=== PATIENT | female | born 1975 | race Caucasian/White ===

== ENCOUNTER 2017-05-14 15:36 | Inpatient (IN) | payer OTHER ==
[~2017-05-14] VITALS: Ht 167.6 cm; Wt 77.6 kg
[2017-05-14 15:42] VITALS: BP 141/75
[2017-05-14] MEDS ORDERED: LO LOESTRIN FE1 EACH PO (15:48)
[2017-05-14 16:29] LABS: HEMATOCRIT 40.8 % (37.0-47.0); HEMOGLOBIN 13.7 gm/dL (12.0-15.0); MCH 31.3 pg (26.0-34.0); MCHC 33.5 g/dL (28.0-37.0); MCV 93.4 fL (80.0-100.0); RBC 4.36 mil/uL (4.20-5.00); RDW-CV 14.4 % (10.5-14.5); WBC 14.9 thou/uL (4.0-11.0)
[2017-05-14 16:38] LABS: CREATININE 0.8 mg/dL (0.6-1.3); POTASSIUM 4.1 mmol/L (3.5-5.1)
[2017-05-14 20:20] VITALS: BP 134/65
[2017-05-14 21:00] VITALS: BP 110/68
[2017-05-14 23:26] LABS: CHOLESTEROL 208 mg/dL (<200); HDL CHOLESTEROL 67 mg/dL (>40); LDL CHOLESTEROL 134 mg/dL (<100); TC:HDL 3.1 Ratio (Not establshd); TRIGLYCERIDE 36 mg/dL (<150); VLDL 7 mg/dL (<40)
[2017-05-14 23:34] LABS: SERUM ASSESSMENT Clear
[2017-05-15] VITALS (8 sets, daily range): BP systolic 91–112; BP diastolic 51–62
--- NOTE | 2017-05-15 05:52 | NUR ---
ASSUMED CARE OF PATIENT AT 2100 THE PATIENT ARRIVES TO UNIT SIGNIFICANT OTHER PRESENT AT BEDSIDE THE PATIENT REPORTS DISCOLORATION OF GREAT TOE X 1 MONTH DISCOLORATION OF 3RD DIGIT X 5-7 DAYS WITH INCREASEING PAIN DISCOMFORT PHOTO OBTAINED PER PROTOCOL OF AREAS SKIN IS OTHERWISE W/D/I PATIENT IS ORIENTATED TO UNIT REMAINS SR ON THE MONITOR O2 SAT MAINTAINED ON RA CONTINUES TO BE UP AD KENDALL PATIENT ADVISED IN SAFETY GOALS ORDERS OBTAINED PER PATIENT REQUEST T.O REGARDING PAIN MANAGEMENT PATIENT STATES FENTANYL MORE EFFECTIVE THAN MORPHINE DURING SUPERINTENDENT PLANT PATIENT REQUESTED MEDICATION FREQUENTLY THE ROUTINE REGIMEN CONTINUES TO BE EFFECTIVE FOR SX MANAGEMENT SAFETY INTERVENTIONS CONTINUE BED LOWERED WHEELS LOCKED CALL LIGHT IN REACH SIDE RAILS UP REPORT TO BE GIVEN TO ONCOMING ANNABEL
--- NOTE | 2017-05-15 07:25 | NUR ---
CHANGE OF SHIFT REPORT GIVEN ASSUMED PATIENT CARE PATIENT SEEN AT BEDSIDE PATIENT WITH C/O PAIN, PAIN IVP GIVEN
[2017-05-15 09:36] LABS: APTT 25.7 Seconds (25.0-31.3)
--- NOTE | 2017-05-15 10:20 | EKG ---
[place] [address] ELECTROCARDIOGRAM REPORT Name: KYRA HUBER Room: [address] ADM IN .R.#: [id number] Admission: 05/14/17 Attend Phys: Chapin Davis Discharge: Date of : 77 Report #: [id number] THIS REPORT FOR: //name// [facility] ED Test Date: 2017-05-14 Test Time: 19:03:44 Pat Name: KYRA HUBER Department: Room: [facility] Gender: Cannery Worker: SOURAV Low : 1975 Requested By: Cedric Hoffmann Order Number: [id number] MD: Miguel Longoria Measurements Intervals [place] Rate: 69 P: 37 CT: 128 QRS: 57 QRSD: 94 T: 45 QT: 384 QTc: 412 Interpretive Statements Sinus rhythm Low voltage, precordial leads No previous ECG available for comparison Electronically Signed On 05-15-2017 10:20:13 ELECTRIC ORGAN INSPECTOR AND REPAIRER by Miguel Longoria [email or web address] <ELECTRONICALLY SIGNED> By: Miguel Longoria MD, [facility] 05/15/17 1020 02 02 Miguel Longoria MD, FACC /EPI
--- NOTE | 2017-05-15 19:04 | NUR ---
PATIENT REMAINS A AND O X 4 NSR LUNGS CTA/DIM/RA O2 SAT HIGH 90S GOOD APPETITE GOOD UO UP AD KENDALL IV R AC 20GA IVF NS AT 100CC/HR STARTED HEPARIN AT 12 UNITS/HR NXT PPT AT 0045 ABN LABS WBC 14.9, NA 133 C/O R TOE/L TOE PAIN GIVEN OXYCODONE 5MG PO PRN FENTANYL 50MCG IVP FOR BREAK THROUGH PAIN NO SCDS CALL LIGHT INSTRUCTION GIVEN AND FOLLOWED AND IN PLACE
[2017-05-16] VITALS: BP 93/47
[2017-05-16 00:56] LABS: ABSOLUTE EOSINOPHILS 0.2 thou/uL (0.0-0.7); ABSOLUTE LYMPHOCYTES 2.6 thou/uL (0.8-5.3); ABSOLUTE MONOCYTES 0.5 thou/uL (0.0-1.2); ABSOLUTE NEUTROPHILS 2.8 thou/uL (1.6-8.1); BASOPHILS 0.1 %; HEMATOCRIT 36.8 % (37.0-47.0); HEMOGLOBIN 12.5 gm/dL (12.0-15.0); LYMPHOCYTES 43.1 %; MCH 31.8 pg (26.0-34.0); MCV 93.5 fL (80.0-100.0); MPV 8.2 fl. (7.2-11.1); NUCLEATED RBCS 0 /100WBC; PLATELET COUNT* 226 thou/uL (150-400); POLYS 45.8 %; RBC 3.93 mil/uL (4.20-5.00); RDW-CV 14.2 % (10.5-14.5); WBC 6.1 thou/uL (4.0-11.0)
[2017-05-16 02:05] LABS: GLYCOHEMOGLOBIN (HGB A1C) 5.1 % (4.8-5.6)
[2017-05-16 04:00] VITALS: BP 104/53
--- NOTE | 2017-05-16 06:15 | NUR ---
ASSUMED CARE OF PATIENT AT 1900 HEPARIN INFUSING VIA IV AT 12U/HR POST APTT RESULTS INCREASED X 2U TO 14 RERDRAW PLACED IN TODDLER TEACHER FOR 0900 THIS AM PER PROTOCOL TX CONTINUES WITHOUT S/SX OF ADVERSE EFFECTS NOTED THE PATIENT REMAINS SR-SB HIGH 50'S ON THE TELEPAK MONITOR O2 SAT MAINTAINED ON RA CONTINUES TO BE UP WITH ASSIST OF 1 TO THE ROUTINE REGIMEN CONTINUES TO BE EFFECTIVE FOR SX MANAGEMENT SAFETY INTERVENTIONS CONTINUES BED LOWERED WHEELS LOCKED CALL LIGHT IN REACH SIDE RAILS UP REPORT TO BE GIVEN TO GWENDOLYN JIN
[2017-05-16 08:15] VITALS: BP 103/60
--- NOTE | 2017-05-16 08:45 | NUR ---
ASSUMED PT. CARE AND RECEIVED REPORT AT 0730. PT A/OX4, VSS, MONITOR ON TRACING SB. PT. RATES PAIN IN TOES /10, GIVEN SCHEDULED OXY. FULL ASSESSMENT COMPLETED, REFER TO CHARTING. PT. DENIES SOB, ON RA @ 97%. RIGHT GREAT TOE NOTED TO BE RED/PURPLE, THIRD DIGIT ON LEFT FOOT ALSO NOTED TO BE RED/PURPLE IN COLOR. PT. SIG. OTHER AT BEDSIDE. HEPARIN GTT INFUSING AT 1400UNIT/HR. RIGHT AC IV EDEMATOUS/INFLITRATED UPON ASSESSMENT. NEW IV STARTED TO LEFT FA. CALL LIGHT IN REACH, WILL CONTINUE WITH PLAN OF CARE.
[2017-05-16 12:08] VITALS: BP 111/70
[2017-05-16 15:45] VITALS: BP 107/63
[2017-05-16 19:40] VITALS: BP 101/57
--- NOTE | 2017-05-16 19:49 | NUR ---
PT. STABLE THROUGH OUT SHIFT. REMAINS ON HEPARIN GTT AT 16OO UNITS/HR WITH REDRAW IN MORNING. PT. AWARE OF PLAN FOR NPO AT MIDNIGHT, SURGERY AT 0800. PT. REPORTS PAIN WELL CONTROLLED WITH SCHEDULED MED TODAY. HOURLY ROUNDING COMPLETED THROUGH OUT THE DAY FOR PT. SAFETY.
[2017-05-17] VITALS (16 sets, daily range): BP systolic 95–135; BP diastolic 40–79
--- NOTE | 2017-05-17 04:11 | NUR ---
END SHIFT: PT RESTED WELL. NO COMPLAINTS. NO PAIN. SO AT BEDSIDE. CONSENT FORMS SIGNED FOR SURGERY TODAY. HEPARIN GTT INFUSING AT 1600 UNITS PER HOUR- TOLERATING. NO S/S OF BLEEDING. SAFETY PRECAUTIONS IN PLACE. CALL LIGHT IN REACH. PERFORMED HOURLY ROUNDING. WILL CONT TO MONITOR.
[2017-05-17 04:34] LABS: ABSOLUTE BASOPHILS 0.1 thou/uL (0.0-0.2); ABSOLUTE EOSINOPHILS 0.3 thou/uL (0.0-0.7); ABSOLUTE LYMPHOCYTES 2.7 thou/uL (0.8-5.3); ABSOLUTE MONOCYTES 0.6 thou/uL (0.0-1.2); ABSOLUTE NEUTROPHILS 3.5 thou/uL (1.6-8.1); BASOPHILS 1.3 %; EOSINOPHILS 3.7 %; HEMATOCRIT 37.2 % (37.0-47.0); HEMOGLOBIN 12.4 gm/dL (12.0-15.0); MCH 31.6 pg (26.0-34.0); MCHC 33.4 g/dL (28.0-37.0); MCV 94.6 fL (80.0-100.0); MONOCYTES 7.9 %; MPV 8.4 fl. (7.2-11.1); NUCLEATED RBCS 0 /100WBC; PLATELET COUNT* 222 thou/uL (150-400); POLYS 49.1 %; RBC 3.93 mil/uL (4.20-5.00); RDW-CV 14.1 % (10.5-14.5); WBC 7.2 thou/uL (4.0-11.0)
--- NOTE | 2017-05-17 07:54 | NUR ---
REPORT RECEIVED FROM NIGHT RN. SWAPNA IS AWAITNG TRANSFER TO PACU FOR VASCULAR SURGERY. PAITNET RESTING COMFORTABLY IN BED WITH FAMILY AT BEDSIDE. SWAPNA STATES THAT PAIN IS WELL CONTROLLED. SWAPNA WAS TAKEN TO PACU AT 0740. SHAWNMICHAEL IS TO RETURN TO ICU BED 5 AFTER SURGERY.
[2017-05-17 10:34] LABS: HEMOGLOBIN 12.2 gm/dL (12.0-15.0); MCH 31.2 pg (26.0-34.0); MCV 94.7 fL (80.0-100.0); MPV 8.1 fl. (7.2-11.1); RBC 3.91 mil/uL (4.20-5.00); WBC 7.4 thou/uL (4.0-11.0)
[2017-05-17 10:45] LABS: CALCIUM 7.2 mg/dL (8.5-10.1); CREATININE 0.7 mg/dL (0.6-1.3); POTASSIUM 4.3 mmol/L (3.5-5.1)
[2017-05-18] VITALS (11 sets, daily range): BP systolic 91–128; BP diastolic 44–78
--- NOTE | 2017-05-18 00:36 | NUR ---
ASSUMED PT CARE AT 1900. PT IS PROGRESSING TOWARD GOALS. RIGHT GROIN SURGICAL INCISION, DERMABOND INTACT, NO HEMATOMA OR BRUISING PRESENT. VSS, O2 SAT REMAINS >95% ON RA. RIGHT GREAT TOE AND LEFT THIRD TOE RED IN COLOR WITH CAP REFILL OF 3 SECONDS OR LESS, SENSATION INTACT AND NO PAIN IN TOES PER PT. PT C/O 10/24 BACK/HIP PAIN RELATED TO IMMOBILIZATION, PRN PAIN MEDS GIVEN ORDERED. PT REMAINS SUPINE WITH HOB 30 DEGREES OR LESS, PT IS COMPLIANT WITH IMMOBILIZATION. CALL LIGHT WITHIN REACH.
[2017-05-18 03:37] LABS: ABSOLUTE BASOPHILS 0.1 thou/uL (0.0-0.2); ABSOLUTE EOSINOPHILS 0.1 thou/uL (0.0-0.7); ABSOLUTE LYMPHOCYTES 1.6 thou/uL (0.8-5.3); BASOPHILS 0.7 %; EOSINOPHILS 0.7 %; HEMOGLOBIN 11.4 gm/dL (12.0-15.0); LYMPHOCYTES 12.3 %; MCH 30.7 pg (26.0-34.0); MCHC 32.6 g/dL (28.0-37.0); MCV 94.2 fL (80.0-100.0); MPV 8.5 fl. (7.2-11.1); NUCLEATED RBCS 0 /100WBC; PLATELET COUNT* 220 thou/uL (150-400); POLYS 78.3 %; RBC 3.71 mil/uL (4.20-5.00); WBC 12.8 thou/uL (4.0-11.0)
[2017-05-18 03:48] LABS: CREATININE 0.8 mg/dL (0.6-1.3); POTASSIUM 4.5 mmol/L (3.5-5.1)
--- NOTE | 2017-05-18 07:42 | NUR ---
ASSUMED CARE OF PT AT 0000. PT RESTING QUIETLY, IV PAIN MEDICATION ADMINISTERED X1 THIS SHIFT, CALL LIGHT WITHIN REACH. IV FLUIDS INFUSING. URINARY CATHETER REMOVED AT 0615. NO CONCERNS VOICED THIS SHIFT.
--- NOTE | 2017-05-18 08:34 | NUR ---
PATIENT CARE ASSUMED AT 0700. PATIENT AWAKE, AOX4 UPON ENTERING ROOM. VITALS STABLE. REFER TO ASSESSMENT CHARTING. PATIENT ON ROOM AIR. TRACING SINUS RHYTHM TO SINUS JAMEL ON PROJECT DEVELOPMENT COORDINATOR. DENIES ALL PAIN. RIGHT GREAT TOE AND LEFT THIRD TOE REMAIN SLIGHTLY DISCOLORED, BUT CAP REFILL NOW LESS THAN 3 SECONDS ON BOTH. SENSATION INTACT IN ALL EXTREMITIES. DENIES NAUSEA/VOMITING/SOB. GODINEZ DISCONTINUED ON PREVIOUS SHIFT. UP TO COMMODE THIS MORNING INDEPENDENTLY. AWAITING VASCULAR PHYSICIAN TO DETERMINE IF PATIENT MAY DISCHARGE TODAY.
[2017-05-18] MEDS ORDERED: CHILDREN'S ASPI81 M1 PO (09:23)
[2017-05-18] MEDS ORDERED: ATORVASTATIN CA40 MG PO ×2 (09:23→09:40)
[2017-05-18] MEDS ORDERED: HYDROCODONE-AP1 EAC6 PO (09:26)
[2017-05-18] MEDS ORDERED: HYDROCODON-ACE1 EAC7 PO (09:41)
--- NOTE | 2017-05-18 09:50 | NUR ---
PATIENT DISCHARGED HOME. DISCHARGE ORDERS GIVEN PER VASCULAR ODALIS. SCRIPTS GIVEN BY DR OSHEA, WELL DOCTORS NOTE. PATIENT IVS DISCONTINUED. PATIENT AMBULATORY TO CAR WITH . ALL BELONGINGS TAKEN WITH PATIENT. LEFT BY PRIVATE VEHICLE.
--- NOTE | 2017-05-18 14:00 | OP ---
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 OPERATION: 1. Right femoral artery cutdown and exposure. 2. Ultrasound-guided access to the bilateral common femoral arteries. 3. Endovascular aortic repair with a 22-16 x 13-40 Endologix aortic stent graft. SURGEON: Cresencio Self DO. FULL STACK NET DEVELOPER: None. ANESTHESIA: General. ESTIMATED BLOOD LOSS: 100 mL. FLUIDS: 1300 crystalloid. URINE OUTPUT: 200 mL. SPECIMENS: None. COMPLICATIONS: None. IMPLANTS: Endologix main body 22-16 x 13-40 stent graft in the distal aorta. FINDINGS: The patient had normal bilateral common femoral arteries on ultrasound suitable for access. She had the CT angiogram, which demonstrated the ulcerated complex distal aortic plaque as likely culprit lesion for her bilateral lower extremity atheroembolization. The stent graft was deployed in standard fashion. Followup imaging confirmed excellent flow through the distal aortoiliac branches with no significant stenosis and complete exclusion of the distal aortic plaque. She had good pedal Doppler signals at the conclusion of procedure. [address] [address] OPERATIVE REPORT Name: KYRA HUBER [place] Room: [address] IN .R.#: [id number] Admission: 05/14/17 Attend Phys: Chapin Davis Discharge: 05/18/17 Date of : 77 Report #: [id number] CLINICAL HISTORY: The patient is a 42-year-old woman who presented with bilateral lower extremity atheroembolization of the toes, right great toe and the left third toe. She had significant pain, which prompted ET evaluation, she had a CT angiogram performed which demonstrated distal complex distal aortic plaque. That ulceration likely would be a culprit lesion for her atheroembolization. She was brought in for intravascular intervention. DESCRIPTION OF PROCEDURE: After informed consent was obtained, the patient was taken to operating room and placed on the OR bed in supine position. She was administered general anesthesia by the anesthesia team. The abdomen and groins were prepped and draped in usual sterile fashion. Full timeout was performed identifying correct patient and procedure. Using ultrasound guidance, the right common femoral artery was identified, was accessed with micropuncture needle. These images were preserved. Using Seldinger technique, a microwire was placed. I then made a small skin incision and bluntly dissected down to the common femoral artery and exposed it. I then exchanged out for microsheath and a Glidewire Advantage. I then dilated the tract with a 6-Monegasque dilator. I then deployed two ProGlide devices in a preclose fashion and then placed an 11-Monegasque sheath. I then passed a flush catheter over the Glidewire Advantage into the thoracic aorta and replaced with a stiff Lunderquist wire. At this point, I administered 6000 units of intravenous heparin. used ultrasound guidance and accessed the left common femoral artery. Again, preserved these images using Seldinger technique, a microwire and microsheath were placed. I then used a Glidewire Advantage and advanced into the aorta and then positioned a snare catheter over the wire into the infrarenal aorta and removed the wire and then positioned the snare. At this point, we then exchanged the right 11-Monegasque sheath for the AFX2 bifurcated device over the stiff wire and advanced the contralateral wire up through the introducer sheath using the wire guide. The contralateral wire was snared and pulled out on the contralateral side. The bifurcated device was then transferred into the introducer sheath and advanced under fluoroscopy until the distal limbs were above the aortic bifurcation, releasing the limbs of the graft. I then pulled the entire system down on the aortic bifurcation and then deployed the main body of the graft by pulling on the control cord handle. I then deployed the contralateral limb by pulling the yellow limb cover and then advancing the pigtail catheter over the contralateral wire until the tip was in contact with the wire lock. We held the pigtail catheter in place and pulled the contralateral wire to release it from the wire lock. We then deployed the ipsilateral limb by pinning the inner core and retracting the introducer sheath. At this point, the device was completely deployed. I then performed the aortogram through the power injector which demonstrated that the graft was patent with complete exclusion of the distal aorta. I felt that it was a little narrowed just above the bifurcation. So I then post-dilated with a 10 x 40 [facility] [address] [place] [address] OPERATIVE REPORT Name: KYRA HUBER Room: [address] IN M.R.#: [id number] Admission: 05/14/17 Attend Phys: Chapin Davis Discharge: 05/18/17 Date of : 77 Report #: [id number] [place] balloon with a good result. Followup imaging angiogram demonstrated a better result and excellent flow through the graft and aortic bifurcation opacifying her common internal and external iliac arteries, which were normal vessels. Again, the distal aorta plaque was completely extruded. Her bilateral renal arteries were patent without significant stenosis as well. At this point, the AFX introducer sheath was removed and the Perclose devices were secured in standard fashion. Manual pressure was held over the femoral exposure site. We then deployed a 7-Monegasque Mynx closure device in the left common femoral artery in standard fashion, again manual pressure was held over this area for 5 minutes. I then partially reversed the heparin with 40 mg protamine. Once hemostasis was ensured, a 4-0 Monocryl stitch was placed in the right groin artery in subcuticular fashion and then Dermabond was applied. All sponge, sharp and instrument counts reported correct x 2. She tolerated the procedure well and was transferred to recovery in stable condition. <ELECTRONICALLY SIGNED> By: Cresencio Self DO 05/18/17 1400 0959 [id number] Self DO /nt
== END 2017-05-18 09:50 | disposition home or self-care (01) | DRG 269 ==
LOC: M.ERS 15:36 → M.2W 18:22 → M.TBA-ER 18:22 → M.2W 20:28 → M.ICU 05-17 09:20
PROVIDERS: Emergency Medicine Emergency Medical Services; Surgery; ADMIT Internal Medicine
PROC: 04V03D6 (ICD-10-PCS; principal; 2017-05-17)
DX: I75.023 Atheroembolism of bilateral lower extremities (principal); R65.10 Systemic inflammatory response syndrome (SIRS) of non-infectious origin without acute organ dysfunction; F17.210 Nicotine dependence, cigarettes, uncomplicated; I70.203 Unspecified atherosclerosis of native arteries of extremities, bilateral legs; Q82.8 Other specified congenital malformations of skin; Z88.0 Allergy status to penicillin

== ENCOUNTER → 2017-06-18 | Outpatient (CLI) | payer OTHER ==
[~2017-06-18] MED LIST: ATORVASTATIN CA40 MG PO; CHILDREN'S ASPI81 M1 PO; HYDROCODON-ACE1 EAC7 PO; HYDROCODONE-AP1 EAC6 PO; LO LOESTRIN FE1 EACH PO
== END ==
LOC: M.CT 09:12
DX: I70.0 Atherosclerosis of aorta (principal)

== ENCOUNTER → 2018-01-21 | Outpatient (CLI) | payer OTHER | LOC: M.CT 07:41 | DX: I70.0 Atherosclerosis of aorta (principal); K80.20 Calculus of gallbladder without cholecystitis without obstruction; I35.0 Nonrheumatic aortic (valve) stenosis ==